=== PATIENT | male | born 1935 | race Caucasian/White ===

== ENCOUNTER 2018-05-22 09:44 | Outpatient (CLI) | payer MEDICARE, OTHER ==
[2018-05-22 10:37] LABS: Estimated GFR-MDRD - POC Greater than 90
--- NOTE | 2018-05-22 12:35 | MRI ---
[facility]IN MRI WITH AND WITHOUT CONTRAST: DATE: 05/22/2018 COMPARISON: 11/29/2014 HISTORY: Right-sided pain, trigeminal neuralgia TECHNIQUE: Multiplanar multisequence MR imaging of the brain obtained with and without contrast Images performed utilizing a cranial nerve protocol FINDINGS: The diffusion weighted imaging demonstrates no evidence for acute infarction. A mild degree of diffuse cerebral volume loss is present. Numerous foci of increased T2 and FLAIR sig nal present throughout the periventricular, deep, and subcortical white matter, evidence of small ves frank disease. There is mild mucosal thickening of the ethmoid air cells bilaterally and the right maxillary sinus. Arterial flow voids at the axial level of the skull base appear grossly unremarkable on the T2-weight ed imaging. On the thin section T2 weighted imaging the cisternal segment of the 5th cranial nerve appears normal as does Meckel's cave bilaterally. No mass lesion or abnormal enhancement is seen along the course o f the trigeminal nerve on either side. Regional bone marrow signal intensity appears grossly unremarkable. Whole brain postcontrast imaging demonstrates no abnormal enhancement within the brain parenchyma. IMPRESSION: Chronic-appearing findings as described above. No mass lesion or abnormal enhancement seen to sugges t a cause for right-sided facial pain. Transcribed Date/Time: 05/22/2018 12:54 PM
== END 2018-05-22 09:45 | disposition home or self-care (01) ==
LOC: SCSMRI 09:44
PROVIDERS: ATTEND Psychiatry & Neurology Neurology
DX: G50.0 Trigeminal neuralgia (principal); J32.0 Chronic maxillary sinusitis
CPT/HCPCS: 70553; 82565

== ENCOUNTER 2020-11-09 11:32 | Outpatient (CLI) | payer MEDICARE, OTHER ==
[~2020-11-09 11:32] MED LIST: Iopamidol 370 76% 100 ML VIAL ONE
== END 2020-11-09 11:33 | disposition home or self-care (01) ==
LOC: CT 11:32
PROVIDERS: ATTEND Ophthalmology
DX: I66.9 Occlusion and stenosis of unspecified cerebral artery (principal); I67.89 Other cerebrovascular disease; J34.89 Other specified disorders of nose and nasal sinuses; I65.23 Occlusion and stenosis of bilateral carotid arteries; R90.89 Other abnormal findings on diagnostic imaging of central nervous system
CPT/HCPCS: 70496; Q9967